=== PATIENT | female | born 1935 | race Two or more races ===

== ENCOUNTER → 2017-11-19 | Outpatient (CLI) | payer MEDICARE, MEDICAID ==
[~2017-11-19] MED LIST: ASPI-496 PO; ASPI325T17; CALC-35; CYCL10TA50; DONE10TA56 PO; FERR325C; GEMF600T; GEMF600T PO; HYDR-3307 PO; LISI1TAB PO; LOVA-41; LOVA40TA2 PO; MIRT30TA3 PO; MULT-316 PO; OXYC-302 PO; PANT40TA3; PANT40TA5 PO; POTA10TA57; POTA10TA6 PO; REGADENOSON 0.4 MG/5 ML SYRINGE ONE
== END | disposition home or self-care (01) ==
LOC: CFH 07:15
PROVIDERS: ATTEND Internal Medicine Cardiovascular Disease
DX: I21.19 ST elevation (STEMI) myocardial infarction involving other coronary artery of inferior wall (principal); I11.9 Hypertensive heart disease without heart failure; I08.3 Combined rheumatic disorders of mitral, aortic and tricuspid valves; I25.10 Atherosclerotic heart disease of native coronary artery without angina pectoris; Z95.1 Presence of aortocoronary bypass graft; E78.5 Hyperlipidemia, unspecified
CPT/HCPCS: 78452; 93017; 93306; A9502; J2785

== ENCOUNTER 2019-02-14 01:20 | Inpatient (IN) | payer MEDICARE, MEDICAID ==
[~2019-02-14] VITALS: Ht 157.5 cm; Wt 57.7 kg
[~2019-02-14 01:20] MED LIST changes: -HYDR-3307 PO; +HYDR-36 PO; -REGADENOSON 0.4 MG/5 ML SYRINGE ONE
[2019-02-14] MEDS ORDERED: SODIUM CHLORIDE FLUSH 10ML SYR IVF ONE ×2 (01:30→02:30)
[2019-02-14] MEDS ORDERED: ONDANSETRON 2MG/ML, 2ML IVPush ONE (01:30)
[2019-02-14] MEDS ORDERED: MORPHINE SULFATE 4 MG/ML, 1ML IVPush PRN (01:30)
[2019-02-14] MEDS ORDERED: SODIUM CHLORIDE 0.9% 1,000ML IVBOLUS ONE (01:30)
--- NOTE | 2019-02-14 01:30 | NUR ---
PT BIB EMS WITH COMPLAINTS OF SYNCOPE AND SALAZAR APPX 1 HR AGO. PT DENIES N/V, GLF OR LOC. PT DENIES ANY OTHER C/O AT THIS TIME. EMS REPORTS PT HAD 60/40 BP UPON EMS ARRIVAL. PT TO 131/55 AFTER 4L NS PROVIDED BY EMS. BS 160. PT CONNECTED TO MONITORING, CALL LIGHT WITHIN REACH, BED IN LOW POSITION WITH X2 RAILS RAISED. FAMILY AT BS FOR SUPPORT.
[2019-02-14] MEDS ORDERED: ONDANSETRON 2MG/ML, 2ML ONE (01:45)
[2019-02-14] MEDS ORDERED: MORPHINE SULFATE 4 MG/ML, 1ML ONE (01:45)
[2019-02-14 01:52] LABS: MEAN CORPUSCULAR HGB CONC 31.3 g/dL (32.4-35.8); MEAN CORPUSCULAR VOLUME 102.2 fL (80-100); MEAN PLATELET VOLUME 8.8 fL (7.4-10.4); PLATELET COUNT 194 x10^3/uL (130-400); RED BLOOD COUNT 2.18 x10^6/uL (3.82-5.3); RED CELL DISTRIBUTION WIDTH 17.8 % (9.6-15.2)
--- NOTE | 2019-02-14 01:54 | NUR ---
PT ASSISTED TO BSC, DAUGHTER AT BEDSIDE.
[2019-02-14 01:58] LABS: ALANINE AMINOTRANSFERASE 10 U/L (12-78); ALBUMIN 2.6 g/dL (3.4-5.0); ANION GAP 9 mmol/L (5-15); CALCIUM 7.7 mg/dL (8.5-10.1); CHLORIDE 119 mmol/L (98-107); CREATININE 1.97 mg/dL (0.55-1.02)
[2019-02-14 02:02] LABS: ALKALINE PHOSPHATASE 82 U/L (45-117); BASOPHILS # (AUTO) 0.04 x10^3/uL (0-0.1); BASOPHILS % (AUTO) 1 % (0-1); BILIRUBIN,TOTAL 0.1 mg/dL (0.2-1.0); EOSINOPHILS # (AUTO) 0.18 x10^3/uL (0-0.4); EOSINOPHILS % (AUTO) 3 % (1-7); LYMPHOCYTES # (AUTO) 0.97 x10^3/uL (1-3.4); LYMPHOCYTES % (AUTO) 18 % (22-44); MD SCAN; MONOCYTES # (AUTO) 0.55 x10^3/uL (0.2-0.8); MONOCYTES % (AUTO) 10 % (2-9); NEUTROPHILS # (AUTO) 3.74 x10^3/uL (1.8-6.8); NEUTROPHILS % (AUTO) 68 % (42-75); TOTAL PROTEIN 5.9 g/dL (6.4-8.2); TROPONIN I < 0.015 ng/mL (0.000-0.045)
[2019-02-14] MEDS ORDERED: MEMA1CAP3 PO (02:14)
[2019-02-14] MEDS ORDERED: GEMF600T8 PO (02:14)
[2019-02-14] MEDS ORDERED: ALEN70TA6 PO (02:14)
--- NOTE | 2019-02-14 02:19 | NUR ---
PT TAKEN TO CT WITH TECH.
[2019-02-14] MEDS ORDERED: PANTOPRAZOLE 40 MG IV IVPush ONE (02:30)
[2019-02-14 02:55] VITALS: BP 125/49
[2019-02-14 03:11] VITALS: BP 139/67
[2019-02-14] MEDS ORDERED: PANTOPRAZOLE 40 MG IV ONE (03:17)
[2019-02-14 03:26] VITALS: BP 154/66
[2019-02-14] MEDS: PANTOPRAZOLE 80 MG in SODIUM CHLORIDE 0.9% 100 ML IV SCH ×3 (03:34→22:26)
--- NOTE | 2019-02-14 04:56 | NUR ---
PT UP TO BEDSIDE COMMODE WITH X1 ASSIST. PT CONNECTED TO ALL MONTORING, CALL LIGHT WITHIN REACH, ALL SAFETY MEASURES IN PLACE.
[2019-02-14 04:57] VITALS: BP 146/69
--- NOTE | 2019-02-14 06:46 | NUR ---
MEAL TRAY AND HOSPITAL BEDS ORDERED
--- NOTE | 2019-02-14 07:00 | NUR ---
REPORT RECEIVED FROM MYKEL VANEGAS.
--- NOTE | 2019-02-14 07:37 | NUR ---
PATIENT AMBULATED TO THE BEDSIDE COMMODE WITH A STEADY GAIT. FAMILY REPORTS SHE IS CONFUSED AND THOUGHT SHE IS AT HOME. LEFT PIV D/C DUE TO UNCONTROLLED BLEEDING FROM SITE. VS UPDATED. PATIENT IS SITTING UP AT THE BEDSIDE. PROVIDER IN ROOM.
[2019-02-14] MEDS ORDERED: ASPIRIN 81 MG TABLET EC ONE (08:23)
[2019-02-14] MEDS ORDERED: ASPIRIN 81 MG TABLET EC PO SCH (09:00)
--- NOTE | 2019-02-14 09:50 | NUR ---
PATIENT TRANSFERED TO HOSPITAL BED WITH A STEADY GAIT.
--- NOTE | 2019-02-14 10:36 | NUR ---
PATIENT AMBULATED TO THE BEDSIDE COMMODE WITH A STEADY GAIT.
--- NOTE | 2019-02-14 11:19 | NUR ---
DAUGHTER IN LAW PHONE NUMBER [id number] [phone] WANTS A PHONE CALL WHEN PATIENT IS MOVED.
--- NOTE | 2019-02-14 12:22 | NUR ---
[facility] ATTENDING PROVIDER, DR. ARRIAGA, NOTIFIED THAT PATIENT'S ADMISSION ORDERS ARE INCOMPLETE. THIS RN ASKED DR. ARRIAGA TO LOOK OVER ORDERS FOR MAINTANANCE FLUIDS, DIET, ACTIVITY AND ADMIT ORDER. DR. ARRIAGA TO UPDATE ORDERS, WHO STATES PATIENT IS TO BE NPO.
[2019-02-14] MEDS ORDERED: POLYETHYLENE GLYCOL 17 GM PACKET PO PRN (12:30)
[2019-02-14] MEDS ORDERED: BISACODYL 10 MG SUPP PR PRN (12:30)
[2019-02-14] MEDS ORDERED: hydrALAzine 20 MG/ML, 1ML IVPush PRN (12:30)
[2019-02-14] MEDS ORDERED: LABETALOL 5MG/ML, 20ML IVPush PRN (12:30)
[2019-02-14] MEDS ORDERED: ONDANSETRON ODT 4 MG PO PRN (12:30)
[2019-02-14] MEDS ORDERED: DOCUSATE 100 MG CAPSULE PO PRN (12:30)
[2019-02-14] MEDS ORDERED: ACETAMINOPHEN 325 MG TABLET PO PRN (12:30)
[2019-02-14] MEDS ORDERED: ONDANSETRON 2MG/ML, 2ML IVPush PRN (12:30)
--- NOTE | 2019-02-14 12:40 | NUR ---
PATIENT SITTING AT BEDSIDE W/ PIV PULLED OUT.
[2019-02-14] MEDS: SODIUM CHLORIDE 0.9% 1,000 ML IV SCH (12:56)
--- NOTE | 2019-02-14 15:13 | NUR ---
REPORT GIVEN TO SILVESTRE VANEGAS.
[2019-02-14 16:03] VITALS: BP 119/64
[2019-02-14 19:42] VITALS: BP 144/70
[2019-02-14] MEDS: LOVASTATIN 40 MG TABLET PO SCH (21:00)
[2019-02-14] MEDS ORDERED: MIRTAZAPINE 30 MG TAB.RAPDIS PO SCH (21:00)
[2019-02-14] MEDS: DONEPEZIL 10 MG TABLET PO SCH (21:00)
[2019-02-14 21:57] LABS: MEAN CORPUSCULAR HEMOGLOBIN 31.6 pg (27.0-34.8); MEAN CORPUSCULAR HGB CONC 32.3 g/dL (32.4-35.8); MEAN CORPUSCULAR VOLUME 97.8 fL (80-100); MEAN PLATELET VOLUME 8.8 fL (7.4-10.4); PLATELET COUNT 180 x10^3/uL (130-400); RED BLOOD COUNT 2.59 x10^6/uL (3.82-5.3); RED CELL DISTRIBUTION WIDTH 20.5 % (9.6-15.2)
[2019-02-14 22:05] LABS: ABSOLUTE RETICS # 0.077 x10^6/uL (0.5-2.5); RED BLOOD COUNT 2.58 x10^6/uL (3.82-5.3); RETICULOCYTE COUNT % 2.97 % (0.5-1.5)
[2019-02-14 22:08] LABS: INTERNATIONAL NORMALIZED RATIO 1.04 (0.93-1.1); PROTHROMBIN TIME 10.9 Seconds (9.6-11.5)
[2019-02-14 22:22] LABS: BASOPHILS # (AUTO) 0.02 x10^3/uL (0-0.1); BASOPHILS % (AUTO) 0 % (0-1); EOSINOPHILS # (AUTO) 0.17 x10^3/uL (0-0.4); EOSINOPHILS % (AUTO) 3 % (1-7); LYMPHOCYTES # (AUTO) 1.05 x10^3/uL (1-3.4); LYMPHOCYTES % (AUTO) 16 % (22-44); MD SCAN; MONOCYTES # (AUTO) 0.55 x10^3/uL (0.2-0.8); MONOCYTES % (AUTO) 9 % (2-9); NEUTROPHILS # (AUTO) 4.71 x10^3/uL (1.8-6.8); NEUTROPHILS % (AUTO) 72 % (42-75)
[2019-02-15] MEDS: SODIUM CHLORIDE 0.9% 1,000 ML IV SCH (01:40)
[2019-02-15 03:23] VITALS: BP 116/70
[2019-02-15 05:55] LABS: BASOPHILS # (AUTO) 0.05 x10^3/uL (0-0.1); BASOPHILS % (AUTO) 1 % (0-1); EOSINOPHILS # (AUTO) 0.15 x10^3/uL (0-0.4); EOSINOPHILS % (AUTO) 3 % (1-7); LYMPHOCYTES % (AUTO) 18 % (22-44); MD NO; MEAN CORPUSCULAR HEMOGLOBIN 31.1 pg (27.0-34.8); MEAN CORPUSCULAR HGB CONC 32.2 g/dL (32.4-35.8); MEAN CORPUSCULAR VOLUME 96.7 fL (80-100); MEAN PLATELET VOLUME 8.5 fL (7.4-10.4); MONOCYTES # (AUTO) 0.53 x10^3/uL (0.2-0.8); MONOCYTES % (AUTO) 9 % (2-9); NEUTROPHILS # (AUTO) 4.17 x10^3/uL (1.8-6.8); NEUTROPHILS % (AUTO) 70 % (42-75); PLATELET COUNT 174 x10^3/uL (130-400); RED BLOOD COUNT 2.51 x10^6/uL (3.82-5.3); RED CELL DISTRIBUTION WIDTH 20.1 % (9.6-15.2)
[2019-02-15 06:09] LABS: CHLORIDE 125 mmol/L (98-107)
[2019-02-15 06:20] LABS: ALANINE AMINOTRANSFERASE 14 U/L (12-78); ALBUMIN 2.7 g/dL (3.4-5.0); ALKALINE PHOSPHATASE 62 U/L (45-117); ANION GAP 8 mmol/L (5-15); BILIRUBIN,TOTAL 0.3 mg/dL (0.2-1.0); CALCIUM 7.9 mg/dL (8.5-10.1); CREATININE 1.29 mg/dL (0.55-1.02); TOTAL PROTEIN 5.7 g/dL (6.4-8.2)
[2019-02-15 06:37] VITALS: BP 119/62
[2019-02-15] MEDS ORDERED: MIDAZOLAM 1 MG/ML, 2ML ONE (08:32)
[2019-02-15] MEDS ORDERED: FENTANYL PF 100 MCG/2ML ONE (08:32)
[2019-02-15] MEDS ORDERED: EPHEDRINE 50 MG/ML, 1ML ONE (09:10)
[2019-02-15] MEDS ORDERED: PROPOFOL 10 MG/ML, 20ML ONE (09:10)
[2019-02-15] MEDS ORDERED: GOLYTELY 4,000ML ORAL.SOL PO ONE (12:00)
[2019-02-15] MEDS: CYANOCOBALAMIN 1,000 MCG TABLET PO SCH (12:43)
[2019-02-15 13:45] VITALS: BP 113/59
[2019-02-15 18:54] VITALS: BP 120/65
[2019-02-15] MEDS: MIRTAZAPINE 15 MG TAB.RAPDIS PO SCH (22:30)
[2019-02-15] MEDS: LOVASTATIN 40 MG TABLET PO SCH (22:31)
[2019-02-15] MEDS: DONEPEZIL 10 MG TABLET PO SCH (22:31)
[2019-02-16] MEDS: SODIUM CHLORIDE 0.9% 1,000 ML IV SCH ×2 (01:03→21:00)
[2019-02-16 02:50] VITALS: BP 162/72
[2019-02-16] MEDS: OMEPRAZOLE 20 MG CAPSULE.DR PO SCH (05:40)
[2019-02-16 07:05] LABS: BASOPHILS # (AUTO) 0.04 x10^3/uL (0-0.1); BASOPHILS % (AUTO) 1 % (0-1); EOSINOPHILS # (AUTO) 0.18 x10^3/uL (0-0.4); EOSINOPHILS % (AUTO) 3 % (1-7); LYMPHOCYTES % (AUTO) 20 % (22-44); MD NO; MEAN CORPUSCULAR HEMOGLOBIN 31.6 pg (27.0-34.8); MEAN CORPUSCULAR HGB CONC 32.4 g/dL (32.4-35.8); MEAN CORPUSCULAR VOLUME 97.3 fL (80-100); MEAN PLATELET VOLUME 8.8 fL (7.4-10.4); MONOCYTES # (AUTO) 0.56 x10^3/uL (0.2-0.8); MONOCYTES % (AUTO) 10 % (2-9); NEUTROPHILS % (AUTO) 66 % (42-75); PLATELET COUNT 158 x10^3/uL (130-400); RED BLOOD COUNT 2.41 x10^6/uL (3.82-5.3); RED CELL DISTRIBUTION WIDTH 18.5 % (9.6-15.2)
[2019-02-16 07:10] LABS: INTERNATIONAL NORMALIZED RATIO 1.07 (0.93-1.1); PROTHROMBIN TIME 11.2 Seconds (9.6-11.5)
[2019-02-16 07:16] LABS: ANION GAP 8 mmol/L (5-15); CHLORIDE 121 mmol/L (98-107)
[2019-02-16 07:18] LABS: CREATININE 1.01 mg/dL (0.55-1.02)
[2019-02-16] MEDS ORDERED: POTASSIUM CHLORIDE 20 MEQ TAB.ER.PRT PO ONE (07:30)
[2019-02-16 08:03] VITALS: BP 143/65
[2019-02-16] MEDS ORDERED: MIDAZOLAM 1 MG/ML, 2ML ONE (12:03)
[2019-02-16] MEDS ORDERED: MEPERIDINE/PF 25MG/0.5ML IVPush PRN (12:30)
[2019-02-16] MEDS ORDERED: PROMETHAZINE 25 MG/ML, 1ML IV PRN (12:30)
[2019-02-16] MEDS ORDERED: ALBUTEROL SULFATE 2.5 MG/3 ML NPPB PRN (12:30)
[2019-02-16] MEDS ORDERED: KETOROLAC 30 MG/1 ML IV PRN (12:30)
[2019-02-16] MEDS ORDERED: LABETALOL 5MG/ML, 20ML IV PRN (12:30)
[2019-02-16] MEDS ORDERED: METOCLOPRAMIDE 5 MG/ML, 2ML IV PRN (12:30)
[2019-02-16] MEDS ORDERED: hydrALAzine 20 MG/ML, 1ML IV PRN (12:30)
[2019-02-16] MEDS ORDERED: FENTANYL PF 100 MCG/2ML IV PRN (12:30)
[2019-02-16] MEDS ORDERED: HYDROmorphone 1 MG/ML, 1ML INJ IV PRN (12:30)
[2019-02-16] MEDS ORDERED: ONDANSETRON 2MG/ML, 2ML IVPush PRN (12:30)
[2019-02-16] MEDS ORDERED: OXYcodone 5 MG/5 ML ORAL.SOL UDC PO PRN (12:30)
[2019-02-16] MEDS ORDERED: POTASSIUM CHLORIDE 20 MEQ TAB.ER.PRT ONE (13:46)
[2019-02-16] MEDS: CYANOCOBALAMIN 1,000 MCG TABLET PO SCH (13:57)
[2019-02-16 14:08] VITALS: BP 138/60
[2019-02-16 17:08] VITALS: BP 120/61
[2019-02-16 19:30] VITALS: BP 126/65
[2019-02-16] MEDS: LOVASTATIN 40 MG TABLET PO SCH (21:51)
[2019-02-16] MEDS: MIRTAZAPINE 15 MG TAB.RAPDIS PO SCH (21:51)
[2019-02-16] MEDS: DONEPEZIL 10 MG TABLET PO SCH (21:51)
[2019-02-17 03:58] VITALS: BP 150/73
[2019-02-17] MEDS: OMEPRAZOLE 20 MG CAPSULE.DR PO SCH (06:24)
[2019-02-17 06:30] LABS: ANION GAP 7 mmol/L (5-15); CALCIUM 7.8 mg/dL (8.5-10.1); CHLORIDE 121 mmol/L (98-107)
[2019-02-17 06:32] LABS: CREATININE 1.12 mg/dL (0.55-1.02)
[2019-02-17] MEDS ORDERED: MAGNESIUM SULFATE PMX 2GM/50ML 50 ML IV ONE (07:00)
[2019-02-17] MEDS ORDERED: POTASSIUM CHLORIDE 20 MEQ TAB.ER.PRT PO ONE (07:00)
[2019-02-17 07:52] VITALS: BP 95/52
[2019-02-17] MEDS: CYANOCOBALAMIN 1,000 MCG TABLET PO SCH (08:14)
[2019-02-17] MEDS: SODIUM CHLORIDE 0.9% 1,000 ML IV SCH (10:30)
[2019-02-17 12:17] VITALS: BP 116/58
[2019-02-17] MEDS: FERROUS SULFATE 325 MG TABLET PO SCH (12:17)
[2019-02-17 13:30] VITALS: BP 122/62
[2019-02-17] MEDS ORDERED: ASPIRIN 81 MG TABLET EC PO ONE (15:07)
[2019-02-17] MEDS: HEPARIN 5,000 UNITS/ML, 1ML SQ SCH (16:05)
[2019-02-17 19:39] VITALS: BP 160/91
[2019-02-17] MEDS: DONEPEZIL 10 MG TABLET PO SCH (20:24)
[2019-02-17] MEDS: MIRTAZAPINE 15 MG TAB.RAPDIS PO SCH (20:24)
[2019-02-17] MEDS: LOVASTATIN 40 MG TABLET PO SCH (20:24)
[2019-02-18] MEDS: HEPARIN 5,000 UNITS/ML, 1ML SQ SCH ×3 (00:06→15:56)
[2019-02-18 01:01] VITALS: BP 140/80
[2019-02-18] MEDS ORDERED: MELATONIN 3 MG TABLET PO PRN (02:00)
[2019-02-18] MEDS ORDERED: TRAZODONE 50MG TABLET PO PRN (02:00)
[2019-02-18] MEDS: OMEPRAZOLE 20 MG CAPSULE.DR PO SCH (05:12)
[2019-02-18 05:34] LABS: BASOPHILS # (AUTO) 0.04 x10^3/uL (0-0.1); BASOPHILS % (AUTO) 1 % (0-1); EOSINOPHILS # (AUTO) 0.25 x10^3/uL (0-0.4); EOSINOPHILS % (AUTO) 5 % (1-7); LYMPHOCYTES # (AUTO) 1.16 x10^3/uL (1-3.4); LYMPHOCYTES % (AUTO) 23 % (22-44); MD NO; MEAN CORPUSCULAR HEMOGLOBIN 31.1 pg (27.0-34.8); MEAN CORPUSCULAR HGB CONC 32.1 g/dL (32.4-35.8); MEAN CORPUSCULAR VOLUME 96.7 fL (80-100); MEAN PLATELET VOLUME 9.4 fL (7.4-10.4); MONOCYTES # (AUTO) 0.59 x10^3/uL (0.2-0.8); MONOCYTES % (AUTO) 12 % (2-9); NEUTROPHILS # (AUTO) 2.99 x10^3/uL (1.8-6.8); NEUTROPHILS % (AUTO) 59 % (42-75); PLATELET COUNT 155 x10^3/uL (130-400); RED CELL DISTRIBUTION WIDTH 18.4 % (9.6-15.2)
[2019-02-18 05:46] LABS: CHLORIDE 121 mmol/L (98-107)
[2019-02-18 05:51] LABS: ANION GAP 7 mmol/L (5-15); CALCIUM 7.7 mg/dL (8.5-10.1)
[2019-02-18 07:15] VITALS: BP 132/70
[2019-02-18] MEDS: FERROUS SULFATE 325 MG TABLET PO SCH (08:29)
[2019-02-18] MEDS: CYANOCOBALAMIN 1,000 MCG TABLET PO SCH (08:30)
[2019-02-18] MEDS ORDERED: ASPIRIN 81 MG TABLET EC PO SCH (09:00)
[2019-02-18] MEDS ORDERED: FERR-51 PO (11:46)
[2019-02-18] MEDS ORDERED: CYAN-27 PO (11:46)
[2019-02-18 12:58] VITALS: BP 129/61
== END 2019-02-18 18:15 | DRG 377 ==
LOC: ED 03:02 → EDIP 03:34 → 4EST 15:26
PROVIDERS: ADMIT Family Medicine; ATTEND Family Medicine
PROC: 30233N1 Transfusion of Nonautologous Red Blood Cells into Peripheral Vein, Percutaneous Approach (ICD-10-PCS; principal; 2019-02-14)
PROC: 0D568ZZ Destruction of Stomach, Via Natural or Artificial Opening Endoscopic (ICD-10-PCS; 2019-02-15)
PROC: 0DJD8ZZ Inspection of Lower Intestinal Tract, Via Natural or Artificial Opening Endoscopic (ICD-10-PCS; 2019-02-16)
DX: K31.811 Angiodysplasia of stomach and duodenum with bleeding (principal); N17.0 Acute kidney failure with tubular necrosis; K57.91 Diverticulosis of intestine, part unspecified, without perforation or abscess with bleeding; D63.8 Anemia in other chronic diseases classified elsewhere; E53.8 Deficiency of other specified B group vitamins; E78.00 Pure hypercholesterolemia, unspecified; E86.0 Dehydration; F03.90 Unspecified dementia, unspecified severity, without behavioral disturbance, psychotic disturbance, mood disturbance, and anxiety; F32.9 Major depressive disorder, single episode, unspecified; I07.1 Rheumatic tricuspid insufficiency; I12.9 Hypertensive chronic kidney disease with stage 1 through stage 4 chronic kidney disease, or unspecified chronic kidney disease; I25.10 Atherosclerotic heart disease of native coronary artery without angina pectoris; I95.0 Idiopathic hypotension; K64.8 Other hemorrhoids; K64.4 Residual hemorrhoidal skin tags; N18.9 Chronic kidney disease, unspecified; Z79.82 Long term (current) use of aspirin; Z87.891 Personal history of nicotine dependence; Z95.0 Presence of cardiac pacemaker; Z95.1 Presence of aortocoronary bypass graft
CPT/HCPCS: 36415; 36430; 70450; 71045; 74176; 80048; 80053; 82607; 82728; 83540; 83550; 83735; 83880; 84484; 85014; 85018; 85025; 85045; 85610; 85730; 86850; 86900; 86923; 93005; 93306; 96374; 96375; G0378; J1644; J2250; J2405; J2704; J3010; C9113; J2270; J3475; J7030; P9016

== ENCOUNTER 2019-05-19 16:32 | Inpatient (IN) | payer MEDICARE, MEDICAID ==
[~2019-05-19] VITALS: Ht 157.5 cm; Wt 58.4 kg
[~2019-05-19 16:32] MED LIST changes: +ALEN70TA6 PO; +CALC-151 PO; +CEFD300C37 PO; +CETI10TA3 PO; +CYAN-27 PO; +FERR-51 PO; +GEMF600T8 PO; +MEMA1CAP3 PO
--- NOTE | 2019-05-19 16:51 | NUR ---
JOSÉ. REPORT RECEIVED FROM EMS. PT C/O DIARRHEA AND SALAZAR FOR 4 DAYS. PT COMPLETED ABX FOR UTI ON LAST SUN. AZERBAIJANI SPEAKING. PT IS DEMENTIA AND AOX2 IS HER BASE LINE. BP/SPO2 MONITORS IN PLACE. CALL LIGHT WITHIN REACH. BEDSIDE COMODE IN ROOM PER REQUEST.
--- NOTE | 2019-05-19 16:52 | NUR ---
PT'S DAUGHTER'S NUMBER [phone]
--- NOTE | 2019-05-19 17:00 | NUR ---
ISOLATION CART PLACED D/T DIARRHEA.
--- NOTE | 2019-05-19 17:03 | NUR ---
EDMD AT BEDSIDE TO EVALUATE AT THIS TIME.
--- NOTE | 2019-05-19 17:13 | NUR ---
PT EDUCATED REGARDING USE OF CALL LIGHT. RAILS UP X 2. HOSPITAL SOCKS PLACED.
[2019-05-19 17:38] LABS: BASOPHILS # (AUTO) 0.04 x10^3/uL (0-0.1); BASOPHILS % (AUTO) 1 % (0-1); EOSINOPHILS # (AUTO) 0.44 x10^3/uL (0-0.4); EOSINOPHILS % (AUTO) 6 % (1-7); LYMPHOCYTES # (AUTO) 1.29 x10^3/uL (1-3.4); LYMPHOCYTES % (AUTO) 17 % (22-44); MD NO; MEAN CORPUSCULAR HEMOGLOBIN 27.8 pg (27.0-34.8); MEAN CORPUSCULAR HGB CONC 32.5 g/dL (32.4-35.8); MEAN CORPUSCULAR VOLUME 85.5 fL (80-100); MEAN PLATELET VOLUME 9.3 fL (7.4-10.4); MONOCYTES % (AUTO) 8 % (2-9); NEUTROPHILS # (AUTO) 5.34 x10^3/uL (1.8-6.8); NEUTROPHILS % (AUTO) 69 % (42-75); PLATELET COUNT 237 x10^3/uL (130-400); RED BLOOD COUNT 3.05 x10^6/uL (3.82-5.3); RED CELL DISTRIBUTION WIDTH 15.7 % (9.6-15.2)
--- NOTE | 2019-05-19 17:38 | NUR ---
THIS RN ATTEMPTED STRAIGHT CATH AT THIS TIME. PT IS CONFUSED AND PUSHED CATH OUT. BEDSIDE COMODE IN ROOM WITH HAT.
[2019-05-19 17:47] LABS: ALANINE AMINOTRANSFERASE 11 U/L (12-78); ALBUMIN 3.2 g/dL (3.4-5.0); ANION GAP 7 mmol/L (5-15); CALCIUM 8.7 mg/dL (8.5-10.1); CHLORIDE 113 mmol/L (98-107); CREATININE 1.88 mg/dL (0.55-1.02)
[2019-05-19 17:49] LABS: ALKALINE PHOSPHATASE 130 U/L (45-117); BILIRUBIN,TOTAL 0.1 mg/dL (0.2-1.0); TOTAL PROTEIN 7.9 g/dL (6.4-8.2)
--- NOTE | 2019-05-19 17:52 | NUR ---
EDMD NOTIFIED REGARDING STRAIGHT CATH.
--- NOTE | 2019-05-19 17:53 | NUR ---
THIS RN CALLED PT'S DAUGHTER AT THIS TIME BUT NO ANSWERE. WILL CALL AGAIN LATER.
--- NOTE | 2019-05-19 17:55 | NUR ---
PT USING BEDSIDE COMODE AT THIS TIME.
--- NOTE | 2019-05-19 18:04 | NUR ---
PT URINATED IN [facility]. URINE COLLECTED AND SENT.
[2019-05-19 18:22] LABS: CULTURE INDICATED? YES; MICROSCOPIC INDICATED
--- NOTE | 2019-05-19 18:29 | NUR ---
THIS RN TALKED TO HER DAUGHTER BY PHONE. THEY ARE NOT ABLE TO COME HERE AT THIS TIME. PER DAUGHTER PT MIGHT HAVE TIA OR RECTAL BLEEDING. EDMD NOTIFIED.
--- NOTE | 2019-05-19 18:42 | NUR ---
NS INFUSING AT THIS TIME. PT TOLERATED WELL.
[2019-05-19] MEDS ORDERED: SODIUM CHLORIDE 0.9%, 500ML IVBOLUS ONE (19:00)
[2019-05-19] MEDS ORDERED: CEFTRIAXONE PMX 1GM/50ML 50 ML IV ONE (19:00)
--- NOTE | 2019-05-19 19:00 | NUR ---
REPORT GIVEN TO SUSANNE VANEGAS.
--- NOTE | 2019-05-19 19:10 | NUR ---
ASSUMED CARE OF PT. PT RESTING ON GURNEY IN NO ACUTE DISTRESS, FALL PRECAUTIONS IN PLACE, CALL LIGHT PLACED WITHIN REACH.
--- NOTE | 2019-05-19 19:21 | NUR ---
ASSISTED PT TO BSC.
--- NOTE | 2019-05-19 19:28 | NUR ---
PT HAD SMALL FORMED BM, PT REPORTS SHE FEELS CONSTIPATED.
--- NOTE | 2019-05-19 19:49 | NUR ---
PT TO CT.
[2019-05-19] MEDS ORDERED: CEFTRIAXONE PMX 1GM/50ML 50 ML ONE (19:56)
--- NOTE | 2019-05-19 20:42 | NUR ---
ASSISTED PT TO BSC, VSS. PLACED CALL LIGHT WITHIN REACH.
[2019-05-19] MEDS ORDERED: ALPR0.5T7 PO (21:28)
--- NOTE | 2019-05-19 21:28 | NUR ---
PT HAS BECOME MORE AGITATED, WANTS TO TALK TO SON LETITIA. THIS RN CALLED OSWALD DAUGHTER [place], PER OSWALD PT TAKES XANAX MG TID PRN. WILL UPDATE .
--- NOTE | 2019-05-19 21:37 | NUR ---
ADMITTING MD AT BEDSIDE FOR EVAL.
--- NOTE | 2019-05-19 21:57 | NUR ---
REPORT GIVEN TO ANAIS VANEGAS.
[2019-05-19] MEDS ORDERED: CETIRIZINE 10 MG TABLET PO PRN (22:00)
[2019-05-19 22:19] VITALS: BP 111/67
[2019-05-19] MEDS: HEPARIN 5,000 UNITS/ML, 1ML SQ SCH (23:31)
[2019-05-19] MEDS: ACETAMINOPHEN 325 MG TABLET PO PRN (23:31)
[2019-05-19] MEDS: LACTATED RINGERS 1,000 ML IV SCH (23:36)
[2019-05-20 01:00] VITALS: BP 133/71
[2019-05-20 05:45] LABS: BASOPHILS # (AUTO) 0.06 x10^3/uL (0-0.1); BASOPHILS % (AUTO) 1 % (0-1); EOSINOPHILS # (AUTO) 0.27 x10^3/uL (0-0.4); EOSINOPHILS % (AUTO) 4 % (1-7); LYMPHOCYTES % (AUTO) 19 % (22-44); MD NO; MEAN CORPUSCULAR HEMOGLOBIN 27.8 pg (27.0-34.8); MEAN CORPUSCULAR HGB CONC 32.4 g/dL (32.4-35.8); MEAN CORPUSCULAR VOLUME 85.8 fL (80-100); MEAN PLATELET VOLUME 9.9 fL (7.4-10.4); MONOCYTES # (AUTO) 0.58 x10^3/uL (0.2-0.8); MONOCYTES % (AUTO) 8 % (2-9); NEUTROPHILS # (AUTO) 4.84 x10^3/uL (1.8-6.8); NEUTROPHILS % (AUTO) 69 % (42-75); PLATELET COUNT 212 x10^3/uL (130-400); RED BLOOD COUNT 2.85 x10^6/uL (3.82-5.3); RED CELL DISTRIBUTION WIDTH 15.8 % (9.6-15.2)
[2019-05-20 05:57] LABS: ALBUMIN 2.9 g/dL (3.4-5.0); ANION GAP 5 mmol/L (5-15); CALCIUM 8.7 mg/dL (8.5-10.1); CHLORIDE 116 mmol/L (98-107)
[2019-05-20 06:01] LABS: ALANINE AMINOTRANSFERASE 8 U/L (12-78); ALKALINE PHOSPHATASE 101 U/L (45-117); BILIRUBIN,TOTAL 0.2 mg/dL (0.2-1.0); CREATININE 1.53 mg/dL (0.55-1.02); TOTAL PROTEIN 7.1 g/dL (6.4-8.2)
[2019-05-20] MEDS: HEPARIN 5,000 UNITS/ML, 1ML SQ SCH ×3 (06:13→22:21)
[2019-05-20 07:05] VITALS: BP 114/58
[2019-05-20] MEDS: POLYETHYLENE GLYCOL 17 GM PACKET PO SCH (07:28)
[2019-05-20] MEDS: SENNA/DOCUSATE TABLET PO SCH (07:28)
[2019-05-20] MEDS: GEMFIBROZIL 600 MG TABLET PO SCH ×2 (08:46→20:20)
[2019-05-20] MEDS: CYANOCOBALAMIN 1,000 MCG TABLET PO SCH (08:46)
[2019-05-20] MEDS: MULTIVITAMINS/MINERALS TABLET PO SCH (08:46)
[2019-05-20] MEDS: LACTATED RINGERS 1,000 ML IV SCH ×2 (08:46→17:04)
[2019-05-20] MEDS: HYDROCHLOROTHIAZIDE 12.5 MG CAPSULE PO SCH (08:46)
[2019-05-20] MEDS: PANTOPRAZOLE 40MG TABLET PO SCH (08:46)
[2019-05-20] MEDS: FERROUS SULFATE 325 MG TABLET PO SCH (08:46)
[2019-05-20] MEDS: MEMANTINE 10MG TABLET PO SCH (08:46)
[2019-05-20] MEDS: LISINOPRIL 20 MG TABLET PO SCH (08:46)
[2019-05-20] MEDS ORDERED: LORazepam 0.5MG TABLET PO ONE ×2 (11:00→11:30)
[2019-05-20 13:51] VITALS: BP 115/61
[2019-05-20 18:24] VITALS: BP 120/53
[2019-05-20] MEDS ORDERED: CEFTRIAXONE PMX 1GM/50ML 50 ML IV SCH (20:00)
[2019-05-20] MEDS ORDERED: DONEPEZIL 10 MG TABLET PO SCH (21:00)
[2019-05-20] MEDS ORDERED: MIRTAZAPINE 30 MG TAB.RAPDIS PO SCH (21:00)
[2019-05-20] MEDS ORDERED: ASPIRIN 81 MG TABLET EC PO SCH (21:00)
[2019-05-20] MEDS ORDERED: LOVASTATIN 40 MG TABLET PO SCH (21:00)
[2019-05-21] VITALS (10 sets, daily range): BP systolic 109–145; BP diastolic 52–74
[2019-05-21] MEDS: LACTATED RINGERS 1,000 ML IV SCH (04:49)
[2019-05-21 05:24] LABS: ALANINE AMINOTRANSFERASE 8 U/L (12-78); ALBUMIN 2.6 g/dL (3.4-5.0); ANION GAP 6 mmol/L (5-15); CALCIUM 8.5 mg/dL (8.5-10.1); CHLORIDE 118 mmol/L (98-107)
[2019-05-21 05:26] LABS: ALKALINE PHOSPHATASE 86 U/L (45-117); BILIRUBIN,TOTAL 0.2 mg/dL (0.2-1.0); CREATININE 1.39 mg/dL (0.55-1.02); MEAN CORPUSCULAR HEMOGLOBIN 27.5 pg (27.0-34.8); MEAN CORPUSCULAR HGB CONC 32.4 g/dL (32.4-35.8); MEAN CORPUSCULAR VOLUME 84.9 fL (80-100); MEAN PLATELET VOLUME 8.9 fL (7.4-10.4); PLATELET COUNT 191 x10^3/uL (130-400); RED BLOOD COUNT 2.67 x10^6/uL (3.82-5.3); RED CELL DISTRIBUTION WIDTH 15.8 % (9.6-15.2); TOTAL PROTEIN 6.5 g/dL (6.4-8.2)
[2019-05-21] MEDS: HEPARIN 5,000 UNITS/ML, 1ML SQ SCH ×2 (05:56→14:00)
[2019-05-21 06:09] LABS: BASOPHILS # (AUTO) 0.04 x10^3/uL (0-0.1); BASOPHILS % (AUTO) 1 % (0-1); EOSINOPHILS # (AUTO) 0.27 x10^3/uL (0-0.4); EOSINOPHILS % (AUTO) 5 % (1-7); LYMPHOCYTES # (AUTO) 1.17 x10^3/uL (1-3.4); LYMPHOCYTES % (AUTO) 23 % (22-44); MD SCAN; MONOCYTES % (AUTO) 12 % (2-9); NEUTROPHILS # (AUTO) 3.03 x10^3/uL (1.8-6.8); NEUTROPHILS % (AUTO) 59 % (42-75)
[2019-05-21] MEDS ORDERED: CEFTRIAXONE PMX 1GM/50ML 50 ML IV SCH (08:00)
[2019-05-21] MEDS: GEMFIBROZIL 600 MG TABLET PO SCH (08:45)
[2019-05-21] MEDS: HYDROCHLOROTHIAZIDE 12.5 MG CAPSULE PO SCH (08:45)
[2019-05-21] MEDS: CYANOCOBALAMIN 1,000 MCG TABLET PO SCH (08:46)
[2019-05-21] MEDS: PANTOPRAZOLE 40MG TABLET PO SCH (08:46)
[2019-05-21] MEDS: LISINOPRIL 20 MG TABLET PO SCH (08:46)
[2019-05-21] MEDS: MEMANTINE 10MG TABLET PO SCH (08:46)
[2019-05-21] MEDS: FERROUS SULFATE 325 MG TABLET PO SCH (08:46)
[2019-05-21] MEDS: SENNA/DOCUSATE TABLET PO SCH (09:00)
[2019-05-21] MEDS: POLYETHYLENE GLYCOL 17 GM PACKET PO SCH (09:00)
[2019-05-21] MEDS: MULTIVITAMINS/MINERALS TABLET PO SCH (09:00)
[2019-05-21 10:47] LABS: OCCULT BLOOD POSITIVE (NEGATIVE)
[2019-05-21] MEDS ORDERED: AMOX1TAB64 PO (11:17)
[2019-05-21] MEDS ORDERED: FLUC150T BC (14:08)
[2019-05-21] MEDS: ACETAMINOPHEN 325 MG TABLET PO PRN ×2 (14:41→17:53)
== END 2019-05-21 18:02 | disposition home health service (06) | DRG 682 ==
LOC: ED 21:01 → EDIP 21:29 → 3N 22:03
PROVIDERS: ADMIT Family Medicine; ATTEND Family Medicine
PROC: 30233N1 Transfusion of Nonautologous Red Blood Cells into Peripheral Vein, Percutaneous Approach (ICD-10-PCS; principal; 2019-05-21)
DX: N17.0 Acute kidney failure with tubular necrosis (principal); J18.9 Pneumonia, unspecified organism; G93.41 Metabolic encephalopathy; N39.0 Urinary tract infection, site not specified; K62.5 Hemorrhage of anus and rectum; E87.2 Acidosis; E44.0 Moderate protein-calorie malnutrition; F03.91 Unspecified dementia, unspecified severity, with behavioral disturbance; Z68.23 Body mass index [BMI] 23.0-23.9, adult; D64.9 Anemia, unspecified; E11.22 Type 2 diabetes mellitus with diabetic chronic kidney disease; E53.8 Deficiency of other specified B group vitamins; E78.00 Pure hypercholesterolemia, unspecified; E86.0 Dehydration; I12.9 Hypertensive chronic kidney disease with stage 1 through stage 4 chronic kidney disease, or unspecified chronic kidney disease; I25.10 Atherosclerotic heart disease of native coronary artery without angina pectoris; K59.00 Constipation, unspecified; K64.9 Unspecified hemorrhoids; N18.9 Chronic kidney disease, unspecified; I25.2 Old myocardial infarction; Z87.891 Personal history of nicotine dependence
CPT/HCPCS: 36415; 70450; 71045; 80053; 81001; 82272; 83605; 85025; 86850; 86900; 86923; 87040; 87086; 87106; 89055; 96361; 96365; G0378; J0696; J1644; J7040; J7120; P9016